=== PATIENT | female | born 1955 | race Caucasian/White ===

== ENCOUNTER → 2017-01-23 | Outpatient (CLI) | payer BC | END | disposition home or self-care (01) | LOC: RAD.S 01-16 14:41 | DX: Z12.31 Encounter for screening mammogram for malignant neoplasm of breast (principal); I87.8 Other specified disorders of veins ==

== ENCOUNTER → 2017-02-20 | Outpatient (CLI) | payer BC | END | disposition home or self-care (01) | LOC: RAD.S 07:47 → EDSTATUS 08:00 | PROC: 065P3ZZ Destruction of Right Saphenous Vein, Percutaneous Approach (ICD-10-PCS; principal; 2017-02-20) | DX: I86.8 Varicose veins of other specified sites (principal) ==

== ENCOUNTER → 2017-02-23 | Outpatient (CLI) | payer BC | END | disposition home or self-care (01) | LOC: RAD.S 09:15 | DX: I87.2 Venous insufficiency (chronic) (peripheral) (principal) ==